=== PATIENT | male | born 1940 | race Caucasian/White ===

== ENCOUNTER 2017-12-27 06:46 | Inpatient (IN) | payer MEDICARE, OTHER ==
[2017-12-16 09:31] LABS: ABSOLUTE EOSINOPHILS 0.1 thou/uL (0.0-0.7); ABSOLUTE LYMPHOCYTES 1.5 thou/uL (0.8-5.3); ABSOLUTE MONOCYTES 0.5 thou/uL (0.0-1.2); ABSOLUTE NEUTROPHILS 4.9 thou/uL (1.6-8.1); BASOPHILS 0.6 %; EOSINOPHILS 1.1 %; HEMATOCRIT 48.6 % (42.0-52.0); HEMOGLOBIN 16.5 gm/dL (14.0-18.0); LYMPHOCYTES 21.8 %; MCH 31.8 pg (26.0-34.0); MCHC 33.9 g/dL (28.0-37.0); MCV 93.8 fL (80.0-100.0); MPV 7.2 fl. (7.2-11.1); NUCLEATED RBCS 0 /100WBC; PLATELET COUNT* 212 thou/uL (150-400); POLYS 69.5 %; RBC 5.18 mil/uL (4.50-6.00); WBC 7.1 thou/uL (4.0-11.0)
[2017-12-16 09:41] LABS: APTT 26.2 Seconds (25.0-31.3); PROTIME 10.1 Seconds (9.20-11.50)
[2017-12-16 09:42] LABS: ALBUMIN 3.5 g/dL (3.4-5.0); CALCIUM 9.4 mg/dL (8.5-10.1); TOTAL BILIRUBIN 0.6 mg/dL (<0.1-1.0)
[2017-12-16 10:38] LABS: ESR (SEDRATE) 3 mm/hr (0-20)
[2017-12-17 02:07] LABS: GLYCOHEMOGLOBIN (HGB A1C) 5.9 % (4.8-5.6)
[~2017-12-27] VITALS: Ht 177.8 cm; Wt 99.8 kg
[~2017-12-27 06:46] MED LIST: ADULT LOW DOSE81 MG PO; ATORVASTATIN CA40 MG PO; BONE ESSENT166.75 MG PO; COQ-10100 MG PO; COREG6.25 MG PO; FISHOIL PO; FLOMAX; GARLIC OIL1 EAC1 PO; HYDROCODON-ACE1 EAC7 PO; LIPITOR; LISINOPRIL-HCT1 EAC1 PO; METAMUCIL PAC1 UDPK1 PO; OMEGA-31000 M1 PO; PERCOCET 7.5-31 EACH; PROBIOTIC1 EAC1 PO; TESTONE CI200 MG/1 M IM; TRAMADOL 50 MG50 MG PO; VITAMIN D1000 UNI1 PO; XANAX 0.5 MG0.5 MG PO; ZOCOR80 MG PO
[2017-12-27 07:12] VITALS: BP 154/79
[2017-12-27 16:00] VITALS: BP 151/76
[2017-12-27 20:00] VITALS: BP 168/93
[2017-12-27 23:37] VITALS: BP 134/84
[2017-12-28 03:48] VITALS: BP 154/77
[2017-12-28 04:26] LABS: HEMATOCRIT 43.7 % (42.0-52.0); HEMOGLOBIN 14.5 gm/dL (14.0-18.0)
[2017-12-28 10:36] VITALS: BP 134/68
[2017-12-28 15:51] VITALS: BP 148/86
[2017-12-28 20:00] VITALS: BP 154/79
[2017-12-28 23:52] VITALS: BP 126/70
[2017-12-29 04:32] LABS: HEMATOCRIT 39.5 % (42.0-52.0); HEMOGLOBIN 13.5 gm/dL (14.0-18.0)
[2017-12-29 04:50] VITALS: BP 121/57
[2017-12-29 07:30] VITALS: BP 127/67
[2017-12-29] MEDS ORDERED: ELIQUIS5 MG PO (07:45)
[2017-12-29] MEDS ORDERED: MIRALAX17 GM PO (07:45)
[2017-12-29 09:43] VITALS: BP 127/67
[2017-12-29 12:00] VITALS: BP 127/67
[2017-12-29] MEDS ORDERED: OXYCODONE HCL 55 MG PO (13:01)
[2017-12-29 13:04] VITALS: BP 127/67
--- NOTE | 2018-01-06 17:44 | OP ---
[facility] [address] [place] [address] OPERATIVE REPORT Name: MARIE MENDEZ Room: [address]#: [id number] Admission: 12/27/17 Attend Phys: Leighton Herrera Discharge: 12/29/17 Date of : 44 Report #: [id number] THIS REPORT FOR: //name// CC: Johnny Jha DICTATED BY: Isaac Polo DO DATE OF SERVICE: 12/27/2017 PREOPERATIVE DIAGNOSIS: Right knee degenerative joint disease. POSTOPERATIVE DIAGNOSIS: Right knee degenerative joint disease. PROCEDURE: Right total knee arthroplasty utilizing Biomet Vanguard total knee system with the following components 1. A size 70 CR right femur. 2. A size 83 fixed cruciate tibial tray. 3. A 12 mm tibial bearing. 4. One bag of Palacos bone cement. SURGEON: Johnny Thompson DO TRACTOR TRAILER MECHANIC: Isaac Polo DO and Steve Guardado DO ANESTHESIA: General. ESTIMATED BLOOD LOSS: 150 mL. ANTIBIOTICS: 2 grams of Ancef IV preoperatively. COMPLICATIONS: None. SPECIMENS: None. DISPOSITION: Stable to PACU and will be admitted to the hospital for standard postoperative care. INDICATIONS: The patient is a pleasant 77-year-old male who is seen in Orthopedic Clinic with complaints of chronic right knee pain over the last year to two. The patient had advanced degenerative changes noted on radiographs. His pain was refractory to conservative measures consisting of oral anti-inflammatories, activity modifications, home physical therapy exercises, intraarticular corticosteroid injections for much greater than 6 months' duration. Therefore, recommendation was made to proceed with a right total knee [place] [id number] OPERATIVE REPORT Name: MARIE MENDEZ Room: [address] IN [facility].#: [id number] Admission: 12/27/17 Attend Phys: Leighton Herrera Discharge: 12/29/17 Date of : 44 Report #: [id number] arthroplasty. Risks, benefits, complications, indications, alternative treatments were discussed and the patient wished to proceed with surgery today. DESCRIPTION OF PROCEDURE: The patient was seen in preoperative holding area, correct operative site, right knee was initialed. The patient was taken back to the operating suite and placed in the supine position on the operating table, given benefit of general anesthetic. A well-padded tourniquet was placed to the right upper thigh. Right lower extremity was then prepped and draped in typical fashion. Surgery began with a timeout, identifying correct patient, correct procedure, correct operative site, preoperative antibiotics and correct performing surgeon. Next, standard anterior midline longitudinal incision was made directly overlying the right knee extending roughly 3 cm proximal to the superior pole of the patella down to the tibial tubercle. Skin was incised with #10 blade scalpel. Sharp dissection was taken down to the prepatellar fascia. Next, a new 10 blade scalpel was utilized to perform a standard medial parapatellar arthrotomy. Next, subperiosteal dissection was performed off both medial and lateral proximal tibial regions. Patella was everted and knee was flexed. The intramedullary drill was entered into the distal femur followed by intramedullary cutting guide for our distal femoral cut. Distal femoral cutting guide was pinned into place. We did have to take an extra 2 mm resection off the distal femoral cut. Oscillating saw was utilized to perform distal femoral cut. Next, attention was turned to the proximal tibia cut. Extramedullary tibial guide was aligned in the normal fashion over the medial third of the tibial tubercle, tibial crest and center of the talus. A cutting block was pinned into place. We measured resection roughly 8 mm off the high lateral side. Oscillating saw was utilized to perform tibial cut. All bony debris was removed. AP sizer was placed on the distal femur and measured to the appropriate size. The 4-in-1 cutting block was then impacted into place in 3 degrees of external rotation as drilled by the AP sizer and anterior and posterior chamfer cuts were performed in normal fashion. All bony debris was removed. Menisci were excised using electrocautery as well as ACL and PCL. A tibial trial was then positioned and pinned into place in the appropriate alignment and rotation followed by a trial femoral component. Next a 10 mm polyethylene spacer was inserted. It felt to be a little bit tight with a valgus type stressing; therefore, the medial side. A slight medial release was performed in normal fashion using an 18-gauge needle and performing multiple punctures of the MCL with a needle. I made a much more balanced knee. We were able to insert a 12 mm polyethylene spacer. It was felt to be stable and had full range of motion, stable in mid flexion and stability. Next, trial femur was removed. Tibia was then punched and drilled in a normal fashion. Remaining trial components were removed. We elected not to resurface the patella at this time as had rather well preserved cartilage. Next, the bony ends were thoroughly irrigated using pulsatile lavage. Final components were cemented into place in normal fashion starting with the tibia [place] [id number] OPERATIVE REPORT Name: MARIE MENDEZ Nabil Room: [address]#: [id number] Admission: 12/27/17 Attend Phys: Leighton Herrera Discharge: 12/29/17 Date of : 44 Report #: [id number] final polyethylene liner was then inserted into place and locked in place with the locking bar. Knee was held in 90 degrees of flexion while cement was drying. Knee was thoroughly irrigated. Standard local cocktail was injected. Vancomycin powder was placed intraarticularly. The capsule was closed with a few #1 Vicryls in a [id number] fashion followed by a running #1 Stratafix suture. Subcutaneous tissues were closed in a simple inverted fashion with a 2-0 Monocryl suture. Subcuticular layer was closed with a running 3-0 Stratafix suture followed by Dermabond skin. Standard dressings were applied consisting of Mepilex and BREANNA hose. The patient was weaned from general anesthetic and transferred in stable condition to the PACU. All sponge and needle counts were correct x 2. <ELECTRONICALLY SIGNED> By: Johnny Thompson DO 01/06/18 1744 [id number] Thompson DO /nt
== END 2017-12-29 13:40 | disposition home or self-care (01) | DRG 470 ==
LOC: M.ORTHSURG 06:46 → M.TBA 06:46 → M.ORTHSURG 08:13
PROVIDERS: Orthopaedic Surgery; ADMIT Internal Medicine
PROC: 0SRC0J9 Replacement of Right Knee Joint with Synthetic Substitute, Cemented, Open Approach (ICD-10-PCS; principal; 2017-12-27)
DX: M17.11 Unilateral primary osteoarthritis, right knee (principal); I10 Essential (primary) hypertension; E78.5 Hyperlipidemia, unspecified; M81.0 Age-related osteoporosis without current pathological fracture; E29.1 Testicular hypofunction; R33.9 Retention of urine, unspecified; R73.03 Prediabetes; K59.00 Constipation, unspecified; Z98.42 Cataract extraction status, left eye; Z98.41 Cataract extraction status, right eye; Z79.82 Long term (current) use of aspirin; Z79.899 Other long term (current) drug therapy; Z82.3 Family history of stroke

== ENCOUNTER 2018-01-01 16:14 | Emergency (ER) | payer MEDICARE, OTHER ==
[~2018-01-01] VITALS: Ht 175.3 cm; Wt 104.3 kg
[~2018-01-01 16:14] MED LIST changes: +ELIQUIS5 MG PO; +MIRALAX17 GM PO; +OXYCODONE HCL 55 MG PO
[2018-01-01] MEDS ORDERED: OXYCODONE HCL E10 MG PO (16:32)
[2018-01-01 17:09] LABS: URINE BILIRUBIN NEGATIVE (Negative); URINE BLOOD NEGATIVE (Negative); URINE CLARITY CLEAR; URINE COLOR YELLOW; URINE GLUCOSE-RANDOM NEGATIVE (Negative); URINE KETONES NEGATIVE (Negative); URINE LEUKOCYTES NEGATIVE (Negative); URINE NITRITE NEGATIVE (Negative); URINE PROTEIN NEGATIVE (Negative); URINE SPECIFIC GRAVITY <= 1.005 (1.005-1.030); URINE UROBILINOGEN 0.2 E.U./dl (0.2-1.0)
[2018-01-01 17:11] LABS: ABSOLUTE BASOPHILS 0.1 thou/uL (0.0-0.2); ABSOLUTE EOSINOPHILS 0.2 thou/uL (0.0-0.7); ABSOLUTE LYMPHOCYTES 1.7 thou/uL (0.8-5.3); ABSOLUTE MONOCYTES 1.3 thou/uL (0.0-1.2); EOSINOPHILS 2.7 %; HEMATOCRIT 40.1 % (42.0-52.0); HEMOGLOBIN 13.8 gm/dL (14.0-18.0); LYMPHOCYTES 20.2 %; MCH 31.8 pg (26.0-34.0); MCHC 34.5 g/dL (28.0-37.0); MONOCYTES 15.6 %; MPV 6.6 fl. (7.2-11.1); NUCLEATED RBCS 0 /100WBC; PLATELET COUNT* 299 thou/uL (150-400); POLYS 60.5 %; RBC 4.36 mil/uL (4.50-6.00); RDW-CV 13.3 % (10.5-14.5); WBC 8.2 thou/uL (4.0-11.0)
[2018-01-01 17:17] LABS: CALCIUM 9.2 mg/dL (8.5-10.1); CREATININE 0.9 mg/dL (0.6-1.3); POTASSIUM 3.9 mmol/L (3.5-5.1)
[2018-01-01 17:22] LABS: TOTAL BILIRUBIN 1.2 mg/dL (<0.1-1.0); TOTAL PROTEIN 7.2 g/dL (6.4-8.2)
[2018-01-01 19:25] VITALS: BP 154/68
== END 2018-01-01 19:28 | disposition home or self-care (01) ==
LOC: M.ERS 16:14
PROVIDERS: Nurse Practitioner Family
DX: K59.00 Constipation, unspecified (principal); I10 Essential (primary) hypertension; E78.5 Hyperlipidemia, unspecified; K64.9 Unspecified hemorrhoids; Z98.890 Other specified postprocedural states

== ENCOUNTER → 2018-01-06 | Outpatient (CLI) | payer MEDICARE, OTHER ==
[~2018-01-06] MED LIST changes: +OXYCODONE HCL E10 MG PO
== END ==
LOC: M.ULTRA 12:28
DX: M79.89 Other specified soft tissue disorders (principal); M79.661 Pain in right lower leg; I10 Essential (primary) hypertension; E78.5 Hyperlipidemia, unspecified

== ENCOUNTER → 2019-02-16 | Outpatient (CLI) | payer MEDICARE, OTHER | LOC: M.MRI 17:00 | DX: M25.461 Effusion, right knee (principal); M25.561 Pain in right knee; Z96.651 Presence of right artificial knee joint ==

== ENCOUNTER → 2019-04-06 | Outpatient (CLI) | payer MEDICARE, OTHER ==
[~2019-04-06] VITALS: Ht 175.3 cm; Wt 99.8 kg
[~2019-04-06] MED LIST changes: +ASA81BEC PO; -ATORVASTATIN CA40 MG PO; +CARDIO OMEGA B1 EACH PO; +LIPITOR40 MG PO; +SOMA350 MG PO; +VITAMIN D32000 UNIT PO
[2019-04-06 09:07] LABS: ABSOLUTE EOSINOPHILS 0.1 thou/uL (0.0-0.7); ABSOLUTE LYMPHOCYTES 1.7 thou/uL (0.8-5.3); ABSOLUTE MONOCYTES 0.6 thou/uL (0.0-1.2); BASOPHILS 0.7 %; EOSINOPHILS 2.2 %; HEMATOCRIT 49.7 % (42.0-52.0); HEMOGLOBIN 17.4 gm/dL (14.0-18.0); MCH 32.1 pg (26.0-34.0); MCV 91.7 fL (80.0-100.0); MONOCYTES 10.9 %; MPV 6.9 fl. (7.2-11.1); NUCLEATED RBCS 0 /100WBC; PLATELET COUNT* 223 thou/uL (150-400); POLYS 55.2 %; RBC 5.42 mil/uL (4.50-6.00); RDW-CV 13.6 % (10.5-14.5); WBC 5.4 thou/uL (4.0-11.0)
[2019-04-06 09:18] LABS: APTT 25.5 Seconds (25.0-31.3); PROTIME 10.5 Seconds (9.20-11.50)
[2019-04-06 09:25] LABS: ALBUMIN 3.7 g/dL (3.4-5.0); CALCIUM 9.7 mg/dL (8.5-10.1); POTASSIUM 3.9 mmol/L (3.5-5.1); TOTAL BILIRUBIN 0.5 mg/dL (<0.1-1.0)
[2019-04-06 10:04] LABS: ESR (SEDRATE) 2 mm/hr (0-20)
--- NOTE | 2019-04-06 16:02 | EKG ---
[place] [address] ELECTROCARDIOGRAM REPORT Name: MARIE MENDEZ Room: [facility]#: [id number] Admission: Attend Phys: Johnny Thompson DO Discharge: Date of : 44 Report #: [id number] THIS REPORT FOR: //name// [facility] Test Date: 2019-04-06 Test Time: 09:11:12 Pat Name: MARIE ANDREA Department: Room: Gender: M Cancer Program Coordinator: : 1940 Requested By: Johnny Thompson Order Number: [id number] Reading MD: Antony Freeman Measurements Intervals [place] Rate: 67 P: -38 [place]: 157 QRS: -56 QRSD: 119 T: 84 QT: 407 QTc: 430 Interpretive Statements Sinus rhythm Ventricular bigeminy LAD, 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
[2019-04-07 02:07] LABS: GLYCOHEMOGLOBIN (HGB A1C) 6.3 % (4.8-5.6)
== END ==
LOC: M.LAB 08:00 → M.PRE 04-19 06:30 → EDSTATUS 04-19 07:20
PROVIDERS: Orthopaedic Surgery
DX: M25.561 Pain in right knee (principal); M22.2X1 Patellofemoral disorders, right knee; R79.89 Other specified abnormal findings of blood chemistry